=== PATIENT | female | born 1970 | race Caucasian/White ===

== ENCOUNTER 2018-07-05 01:01 | Outpatient (CLI) | payer MEDICAID, SELFPAY ==
--- NOTE | 2018-07-05 11:07 | DI.REPORT_ITS ---
SYMPTOM/DIAGNOSIS: HALLUX VALGUS ACQUIRED LT FOOT, M20.11, HALLUX VALGUS ACQUIRED RT FOOT BUNION RIGHT FOOT: 07/05 LEFT FOOT 07/05 Four views of each foot were obtained. There is bilateral hallux valgus deformity moderate on the right and severe on the left. Minimal degenerative changes are noted of the 1st MTP joints bilaterally. No other significant bony abnormality seen.
== END 2018-07-05 01:02 ==
PROVIDERS: PCP Family Medicine; Visit Provider Podiatrist Foot & Ankle Surgery
DX: M20.11 Hallux valgus (acquired), right foot (principal); M20.12 Hallux valgus (acquired), left foot; M19.071 Primary osteoarthritis, right ankle and foot; M19.072 Primary osteoarthritis, left ankle and foot
CPT/HCPCS: 73630

== ENCOUNTER 2018-07-05 01:02 | Outpatient (CLI) | payer MEDICAID, SELFPAY ==
[2018-07-05 12:24] LABS: HCT 45.5 % (36.0-46.0); HGB 15.7 g/dL (12.0-15.5); Mean Corp. HGB Concentration 34.5 g/dL (32.0-36.0); Mean Corpuscular Hemoglobin 31.2 pg (27.0-33.0); Mean Corpuscular Volume 90.5 fL (80-95); Mean Platelet Volume 9.1 fL (8.0-11.0); Platelet Count 386 x1000/uL (130-400); RBC 5.03 m/cumm (4.00-5.20); RBC Distribution Width 13.7 % (11.7-14.6); White Blood Cell Count 6.43 k/cumm (4.4-10.8)
[2018-07-05 13:11] LABS: Iron 184 ug/dL (50-175)
[2018-07-05 13:34] LABS: ALT 90 U/L (12-78); AST 79 U/L (15-37); Alkaline Phosphatase 175 U/L (46-116); Anion Gap 6.6 mmol/L (3-11); BUN 10 mg/dL (7-18); Bilirubin, Total 0.3 mg/dL (0.2-1.0); CO2 30.4 mmol/L (21.0-32.0); CREATININE 0.85 mg/dL (0.55-1.02); Calcium 9.5 mg/dL (8.5-10.1); Chloride 99 mmol/L (98-107); Cholesterol 251 mg/dL (50-200); Ferritin 86 ng/mL (8-388); Folate > 20.0 ng/mL (8.6-20.0); GGT 106 U/L (5-55); Glucose 105 mg/dL (70-100); HDL Cholesterol 60 mg/dL (40-60); LDL CHOLESTEROL 163 mg/dL (<100); Potassium 4.5 mmol/L (3.5-5.1); Sodium 136 mmol/L (136-145); TSH (W/Ref FT4) 0.84 uIU/mL (0.358-3.74); Triglyceride 145 mg/dL (30-150); Vitamin B12 733 pg/mL (193-986)
[2018-07-05 15:25] LABS: ESR 17 MM/HR (0-20)
[2018-07-06 07:11] LABS: Vitamin D 25 Total 74.1 ng/ml (30-100)
== END 2018-07-05 01:03 ==
PROVIDERS: PCP Family Medicine; Visit Provider Family Medicine
DX: B19.20 Unspecified viral hepatitis C without hepatic coma (principal); E53.8 Deficiency of other specified B group vitamins; E55.9 Vitamin D deficiency, unspecified; E61.1 Iron deficiency; I10 Essential (primary) hypertension; K29.80 Duodenitis without bleeding; R11.0 Nausea; J44.9 Chronic obstructive pulmonary disease, unspecified; G89.4 Chronic pain syndrome; R20.0 Anesthesia of skin
CPT/HCPCS: 36415; 80053; 80061; 82306; 83721; 85027; 85652; 86803; 73630; 82607; 82728; 82746; 82977; 83540; 83735; 84443; 87522

== ENCOUNTER 2019-02-07 13:54 | Outpatient (CLI) | payer MEDICAID, SELFPAY ==
--- NOTE | 2019-02-07 10:15 | DI.RAD_ITS ---
SYMPTOMS/DIAGNOSIS: LT KNEE PAIN, M25.562 LEFT KNEE: The patient is status post ACL repair. The joint spaces are well maintained. No joint effusion is visible. IMPRESSION: Status post ACL repair.
== END 2019-02-07 14:14 ==
PROVIDERS: PCP Family Medicine; Visit Provider Family Medicine
DX: M25.562 Pain in left knee (principal); Z98.890 Other specified postprocedural states
CPT/HCPCS: 73564

== ENCOUNTER 2020-04-30 04:07 | Outpatient (CLI) | payer MEDICAID, SELFPAY ==
[2020-04-30 10:56] LABS: Abs Immature Grans 0.02 k/cumm (0.0-0.09); Absolute Basophil Count 0.04 k/cumm (0.0-0.2); Absolute Eosinophil Count 0.21 k/cumm (0.0-0.7); Absolute Lymphocyte Count 2.02 k/cumm (1.2-3.4); Absolute Monocyte Count 0.62 k/cumm (0.11-0.7); Absolute Neutrophil Count 4.41 k/cumm (1.2-6.7); Basophils % 0.5; Eosinophils % 2.9; HCT 37.7 % (36.0-46.0); Immature Grans % 0.3 %; Lymphocytes % 27.6; Mean Corp. HGB Concentration 34.5 g/dL (32.0-36.0); Mean Corpuscular Hemoglobin 31.5 pg (27.0-33.0); Mean Corpuscular Volume 91.3 fL (80-95); Mean Platelet Volume 9.2 fL (8.0-11.0); Monocytes % 8.5; Neutrophils % 60.2; Platelet Count 367 x1000/uL (130-400); RBC 4.13 m/cumm (4.00-5.20); RBC Distribution Width 12.7 % (11.7-14.6); White Blood Cell Count 7.32 k/cumm (4.4-10.8)
[2020-04-30 11:11] LABS: Hemoglobin A1C 5.4 % (3.8-5.6)
[2020-04-30 11:45] LABS: *AMPHETAMINES SCREEN URINE Negative (Negative); *BARBITURATES SCREEN URINE Negative (Negative); *BENZODIAZEPINES SCREEN URINE Negative (Negative); Cannabinoids THC POSITIVE (Negative); Cocaine Screen,Urine Negative (Negative); METHADONE URINE SCREEN Negative (Negative); OPIATES URINE SCREEN POSITIVE (Negative)
[2020-04-30 11:46] LABS: Tricyclic Antidepressants Negative (Negative)
[2020-04-30 11:50] LABS: ALT 72 U/L (14-59); AST 60 U/L (15-37); Albumin 4.2 g/dL (3.4-5.0); Alkaline Phosphatase 222 U/L (46-116); Anion Gap 8.9 mmol/L (3-11); BUN 16 mg/dL (7-18); Bilirubin, Total 0.4 mg/dL (0.2-1.0); CO2 31.1 mmol/L (21.0-32.0); CREATININE 0.99 mg/dL (0.55-1.02); Calcium 9.2 mg/dL (8.5-10.1); Chloride 94 mmol/L (98-107); Estimated GFR 59.37 (mL/min/1.73m2); Glucose 100 mg/dL (74-106); Potassium 3.7 mmol/L (3.5-5.1); Sodium 134 mmol/L (136-145); Total Protein 8.2 g/dL (6.4-8.2)
[2020-04-30 12:17] LABS: ESR 17 mm/hr (0-20)
[2020-04-30 12:20] LABS: Calculated LDL 171 mg/dL (<100); Cholesterol 251 mg/dL (<200); HDL Cholesterol 57 mg/dL (40-60); Triglyceride 118 mg/dL (<150)
[2020-04-30 13:48] LABS: Folate 8.4 ng/mL (8.6-20.0)
[2020-04-30 16:33] LABS: Rheumatoid Factor 36.5 IU/mL (<12.0)
[2020-05-01 04:49] LABS: Vitamin D 25 Total 83.6 ng/ml (30-100)
[2020-05-01 09:21] LABS: Cyclic Citrullinated Peptide <2.5 U/mL (<5.0)
[2020-05-01 10:10] LABS: Hepatitis C Ab w Rflx HCV PCR Reactive (Negative)
[2020-05-01 16:01] LABS: ANA Interpretation Positive (Negative); ANA Titer Pattern 1:160 Speckled
[2020-05-09 12:11] LABS: HCV RNA Qualitative Detected (Undetected)
== END 2020-04-30 04:27 ==
PROVIDERS: PCP Family Medicine; Visit Provider Family Medicine
DX: B19.20 Unspecified viral hepatitis C without hepatic coma (principal); F32.9 Major depressive disorder, single episode, unspecified; J44.9 Chronic obstructive pulmonary disease, unspecified; R53.83 Other fatigue; G89.29 Other chronic pain; M25.50 Pain in unspecified joint; E11.9 Type 2 diabetes mellitus without complications; E55.9 Vitamin D deficiency, unspecified
CPT/HCPCS: 36415; 80053; 80061; 80307; 82306; 85652; 86200; 86803; 87522; 82746; 83036; 84443; 85025; 86038; 86431

== ENCOUNTER 2021-01-26 00:57 | Outpatient (CLI) | payer MEDICAID, SELFPAY ==
--- NOTE | 2021-01-26 07:30 | DI.MAMMO_ITS ---
EXAM: MAMMO SCREENING CLINICAL HISTORY: screening,Z12.39 TECHNIQUE: Mammograms were interpreted according to the usual protocol including computer analysis w [employer] CAD system, tomosynthesis and C-view imaging. COMPARISON: No prior exams are available for comparison. FINDINGS: The breasts are composed of heterogeneously dense fibroglandular densities, Breast Density category C . No suspicious masses or suspicious microcalcifications are seen. There is scarring in the lateral right breast related to previous biopsy. IMPRESSION: BI-RADS Cat 2 - Benign Findings Yearly screening mammography is recommended. Breast Density Category C, heterogeneously Dense. The mammogram demonstrates the patient's breast tissue is dense. Dense breast tissue is very common a nd is not abnormal but dense breast tissue can make it harder to find cancer on a mammogram. Also, de nse breast tissue may increase breast cancer risk. This information about the result of the mammogram report was provided to the patient to raise their awareness. Use this report when you speak with the patient about their risks for breast cancer, which includes their family history. At that time, you may recommend additional screening tests (Ultrasound or MRI) as they might be useful based on their r isk. A negative radiographic report should not delay biopsy if a dominant or clinically suspicious mass is present. Up to ten percent of cancers are not identified on mammography. A negative report may reinforce clinical impression. Adenosis and dense breasts may obscure an underlying neoplasm. False positive reports average 6 to 10%.
== END 2021-01-26 01:17 ==
PROVIDERS: PCP Family Medicine; Visit Provider Family Medicine
DX: Z12.31 Encounter for screening mammogram for malignant neoplasm of breast (principal)
CPT/HCPCS: 77063; 77067

== ENCOUNTER 2021-01-26 12:03 | Outpatient (REF) | payer MEDICAID, SELFPAY ==
--- NOTE | 2021-01-26 09:50 | PAPFT_PTH ---
PATIENT: Kendal George LOC: [facility] U#:[id number] AGE/SX: 50/F ROOM: RE01/26/[address]: Rachel Pillai MD, DC : 1970 BED: DIS: 01/26/2021 SPEC #: [id number] RECD: 01/26/21 12:53 STATUS: ABEBA REQ #: [id number] RADHA: 01/26/21 09:[address]: Rachel Pillai DEPT: [facility] Cytology RECD BY: Lizzy Choudhary Tissues: 1 - CX/ENDOCX FOR PAP SMEARS Procedures: PAP THIN PREP/UVM Screening HPV DNA PROBE Comments: [id number]
== END 2021-01-26 12:04 | disposition home or self-care (01) ==
LOC: LBN 12:03
PROVIDERS: PCP Family Medicine; Visit Provider Family Medicine
DX: Z12.4 Encounter for screening for malignant neoplasm of cervix (principal); Z11.51 Encounter for screening for human papillomavirus (HPV)
CPT/HCPCS: 88142; 87624

== ENCOUNTER 2021-03-10 03:04 | Outpatient (CLI) | payer MEDICAID, SELFPAY ==
[2021-03-11 13:29] LABS: COVID-19 RT-PCR UVMMC Result Negative (Negative)
== END 2021-03-10 03:05 | disposition home or self-care (01) ==
LOC: LBO 03:04
PROVIDERS: PCP Family Medicine; Visit Provider Family Medicine
DX: Z20.822 Contact with and (suspected) exposure to COVID-19 (principal)
CPT/HCPCS: U0003

== ENCOUNTER 2021-05-07 10:46 | Outpatient (CLI) | payer MEDICAID, SELFPAY ==
--- NOTE | 2021-05-07 09:15 | DI.MRI_ITS ---
Exam(s) MR CERVICAL SPINE WO EXAM: MR CERVICAL SPINE WO CLINICAL HISTORY: cervical myelopathy AND RADICULOPATHY AT C6.M54.12 TECHNIQUE: Multiplanar multisequence MRI of the cervical spine was performed without intravenous con trast. COMPARISON: CR XR CERVICAL SPINE COMP 4-5V from 05/07/2021 FINDINGS: CERVICOMEDULLARY JUNCTION: Intact with no evidence of cerebellar tonsillar ectopia. No obvious abnor mality of the odontoid process. No evidence of Chiari 1 malformation. There is multilevel advanced disc space narrowing at and below C3 and there is reversal of the normal curvature of the cervical sp ine. CERVICAL SPINAL CORD: Significant signal abnormality noted in the posterior active sec of the cervica l cord at C6 level (see below). OSSEOUS:There are no cervical fractures evident. No significant osseous lesions in the cervical vert ebrae. Intraosseous edema is seen within C3, C4, and C5 vertebral bodies. INDIVIDUAL LEVELS: C2-3: No disc herniation nor central canal stenosis. No foraminal stenosis. Significant degenerative changes in the left facet joint. No prominent foraminal stenosis C3-4: Advanced disc space narrowing. Anterior osteophytes. Luschka joint osteophytes and posterior bony ridging. Moderate central spinal canal stenosis. Left-sided facet arthropathy. Bilateral fora anjana stenosis. AP measurement of the spinal canal at this level is 8.5 millimeters. C4-5: Advanced disc space narrowing. Prominent posterior bony ridging with moderate central spinal c anal stenosis. AP measurement of the canal is 6 millimeters. Left-sided facet arthropathy. Lesser right facet arthropathy but there are bilateral foraminal Luschka joint osteophytes. Mild bilateral foraminal stenosis. C5-6: Advanced disc space narrowing.. Posterior bony ridging-bilateral Luschka joint osteophytes. N o distinct disc protrusion. Canal AP measurement is 8.5 millimeters at this level. Mild degenerativ e facet joint changes on the right and moderate on the left. No prominent foraminal stenosis. There is a fluid signal in the posterior aspect of the spinal cord at this level behind the C6 vertebra. This extends for a craniocaudal length of 11 millimeters and exhibits measurement 3 millimeters wide and 2 millimeters AP. C6-7: Moderate-advanced disc space narrowing. Bilateral Luschka joint osteophytes. No distinct disc herniation. Central canal dimensions lower normal. The AP measurement of the canal at this level i s 11.5 millimeters. Mild facet arthropathy. Mild foraminal stenosis. C7-T1: No disc herniation nor central canal stenosis. No facet arthropathy.No foraminal stenosis. IMPRESSION: 1. Severe multilevel chronic degenerative disc disease as described above with severe chronic disc sp radha narrowing at C3-4, C4-5, C5-6, and C6-7 levels and with reversal normal curvature at these levels . There is no distinct disc herniation (there is very little remaining disc material these levels), but there are multilevel dilution joint osteophytes causing foraminal stenosis at multiple levels. I n addition, there is posterior bony ridging and central spinal canal stenosis, as detailed above. In addition, there is abnormal fluid signal seen within the posterior aspect of the spinal cord at C6 l evel, extending from lower C5 level down to upper C 7 level. This signal abnormality in the spinal c ord is more posteriorly than typical for the central canal. Findings are consistent with myelopathy. DATA REPOSITORY:
--- NOTE | 2021-05-07 09:27 | DI.RAD_ITS ---
Exam(s) XR CERVICAL SPINE COMP 4-5V EXAM: XR CERVICAL SPINE COMP 4-5V CLINICAL HISTORY: cervical radiculopathy AT C6,M54.12. TECHNIQUE: 2D digital imaging was performed. FINDINGS: There is no evidence of fracture, listhesis, nor offset of the spinal laminar line. Main finding here is advanced chronic disc space narrowing at C3-4, C4-5, C5-6, and C6-7 levels. The re also small bilateral multilevel Luschka joint osteophytes. Mild facet arthropathy. No osseous le sions. No cervical ribs. IMPRESSION: Chronic advanced multilevel degenerative disc disease. There is straightening of the cervical spine which most probably related to chronic muscle spasm. This was also evident on MRI of April 2013. DATA REPOSITORY: RADIATION DOSE DELIVERED:
== END 2021-05-07 11:06 ==
PROVIDERS: PCP Family Medicine; Visit Provider Family Medicine
DX: M50.023 Cervical disc disorder at C6-C7 level with myelopathy; M50.123 Cervical disc disorder at C6-C7 level with radiculopathy; M48.02 Spinal stenosis, cervical region
CPT/HCPCS: 72050; 72141

== ENCOUNTER 2021-07-30 10:13 | Outpatient (CLI) | payer MEDICAID, SELFPAY ==
--- NOTE | 2021-07-30 10:00 | RT.EKG_ITS ---
APPROVED REPORT Exam: Resting ECG Reason for Exam: Pre-op testing Patient Location: O HR:65 bpm ECG Measurements Heart Rate 65 AXIS VA 122 P 68 QRSd 100 QRS 88 QT 413 T 61 QTc 429 Conclusion Sinus rhythm...normal P axis, V-rate 60- 99 Normal Electrocardiogram
== END 2021-07-30 10:14 | disposition home or self-care (01) ==
LOC: DI.CM 10:14
PROVIDERS: PCP Family Medicine; Visit Provider Family Medicine
DX: Z01.818 Encounter for other preprocedural examination (principal)
CPT/HCPCS: 93010

== ENCOUNTER 2022-02-16 15:26 | Outpatient (REF) | payer MEDICAID, SELFPAY ==
[2022-02-16 14:06] LABS: *AMPHETAMINES SCREEN URINE Negative (Negative); *BARBITURATES SCREEN URINE Negative (Negative); *BENZODIAZEPINES SCREEN URINE Negative (Negative); Cannabinoids THC Positive (Negative); Cocaine Screen,Urine Negative (Negative); METHADONE URINE SCREEN Negative (Negative); OPIATES URINE SCREEN Positive (Negative); Tricyclic Antidepressants Negative (Negative)
== END 2022-02-16 15:27 | disposition home or self-care (01) ==
LOC: LBN 15:26
PROVIDERS: PCP Family Medicine; Visit Provider Family Medicine
DX: G89.4 Chronic pain syndrome (principal)
CPT/HCPCS: 80307

== ENCOUNTER → 2022-04-02 01:12 | Outpatient (CLI) | payer MEDICAID, SELFPAY ==
--- NOTE | 2022-04-02 06:54 | DI.MRI_ITS ---
Exam(s) MR CERVICAL SPINE WO/W EXAM: MR CERVICAL SPINE WO/W CLINICAL HISTORY: worsening pain after surgery,cervical myelopathy,g95.9,m54.12 TECHNIQUE: Multiplanar multisequence MRI of the cervical spine was performed. CONTRAST MATERIAL: IV Contrast: 9 ML of Dotarem contrast administered. COMPARISON: MR MR CERVICAL SPINE WO from 05/07/2021 CR XR CERVICAL SP COMP W FLEX/EXT from 04/02/2022 FINDINGS: Since the prior MRI the patient has undergone posterior spinal surgery from C3 through C7. BONES: Vertebral body heights are maintained. Intervertebral disc spaces are normal. There is straigh tening of the normal cervical lordosis. Bone marrow signal intensity is within normal limits. Moder ate degenerative changes are present throughout the cervical spine. CERVICAL CORD: Craniovertebral junction is unremarkable. The cervical spinal cord is normal in size. There is mild hyperintense signal seen in the spinal cord post in the posterior spinal cord extendin g from C5 through C7. There is no enhancement following contrast administration. No lesion is prese nt. SOFT TISSUES: Unremarkable. ENHANCEMENT: No suspicious enhancement identified. Neural foraminal evaluation is largely obscured due to artifact from the patient's hardware. No sign ificant central spinal canal stenosis is present. IMPRESSION: 1. Interval posterior spinal surgery from C3 through C7. 2. Limited evaluation of the central spinal canal and neural foramen secondary to artifact from the p atient's hardware. 3. Mild hyperintense signal at the posterior aspect of the spinal cord extending from C5 through C7. This does not show enhancement. This is nonspecific but spinal cord injury or myelopathy should be considered. Neoplasm cannot be excluded. DATA REPOSITORY:
--- NOTE | 2022-04-02 12:46 | DI.RAD_ITS ---
Exam(s) XR CERVICAL SP COMP W FLEX/EXT EXAM: XR CERVICAL SP COMP W FLEX/EXT CLINICAL HISTORY: ? movement of spine after surgery,cervical myelopathy. TECHNIQUE: 2D digital imaging was performed. Eight images were obtained. AP, odontoid, lateral, exte nsion, flexion and bilateral oblique images were obtained. COMPARISON: No exams were available for comparison FINDINGS: The odontoid is intact. The lateral masses are well aligned. There is reversal of the normal cervica l lordosis. The patient has had laminectomies from C3 through C7. The vertebral body heights are wel l maintained. There is disc space narrowing and endplate osteophytes from C3-C4 through C6-C7. No ac sault [place] fracture or subluxation is present. The cervical thoracic junction is well maintained. There is limited extension. The prevertebral soft tissues are unremarkable. Lung apices are clear. IMPRESSION: 1. Examination limited by patient motion. 2. Postsurgical changes from C3 through C7. 3. Degenerative changes in the cervical spine. DATA REPOSITORY: RADIATION DOSE DELIVERED:
[2022-04-02 13:29] LABS: HCT 37.4 % (36.0-46.0); HGB 12.9 g/dL (11.2-15.7); MCH 31.1 pg (27.0-33.0); MCHC 34.5 % (32.0-36.0); MCV 90 fL (80-95); MPV 9.1 fL (8.0-11.0); Platelet Count 387 10^3/uL (130-400); RBC 4.15 10^6/uL (3.93-5.22); RDW 12.7 % (11.7-14.6); RDW-SD 42.2 fL; WBC 8.15 10^3/uL (4.4-10.8)
[2022-04-02] MEDS: Gadoterate meglumine 20 ML VIAL IVP (14:04)
[2022-04-02] MEDS: Normal Saline Flush 10 ML SYR IVP (14:05)
[2022-04-02 14:13] LABS: ALT 46 U/L (14-59); AST 42 U/L (15-37); Albumin 3.9 g/dL (3.4-5.0); Alkaline Phosphatase 162 U/L (46-116); Anion Gap 6.1 mmol/L (3-11); BUN 12 mg/dL (7-18); Bilirubin, Total 0.5 mg/dL (0.2-1.0); CO2 29.9 mmol/L (21.0-32.0); CREATININE 0.8 mg/dL (0.55-1.02); Calcium 8.7 mg/dL (8.5-10.1); Calculated LDL 118 mg/dL (<100); Chloride 98 mmol/L (98-107); Cholesterol 196 mg/dL (<200); Ferritin 171 ng/mL (8-252); Glucose 103 mg/dL (74-106); HDL Cholesterol 62 mg/dL (40-60); Potassium 3.7 mmol/L (3.5-5.1); Sodium 134 mmol/L (136-145); TSH (W/Ref FT4) 0.63 uIU/mL (0.36-3.74); Total Protein 7.8 g/dL (6.4-8.2); Triglyceride 84 mg/dL (<150); Vitamin B12 764 pg/mL (193-986)
[2022-04-02 14:14] LABS: Folate > 20.0 ng/mL (8.6-20.0)
[2022-04-02 14:19] LABS: Iron 84 ug/dL (50-170)
[2022-04-05 06:12] LABS: Vitamin D 25 Total 93.7 ng/mL (30-100)
[2022-04-05 12:08] LABS: Hepatitis C Ab w Rflx HCV PCR Reactive (Negative)
[2022-04-07 14:50] LABS: HCV RNA Detection Quantitative 6050000 IU/mL (Undetected); HCV RNA Qualitative Detected (Undetected)
== END ==
PROVIDERS: PCP Family Medicine; Visit Provider Family Medicine
DX: M50.31 Other cervical disc degeneration, high cervical region (principal); M50.323 Other cervical disc degeneration at C6-C7 level; M54.12 Radiculopathy, cervical region; I10 Essential (primary) hypertension; E53.8 Deficiency of other specified B group vitamins; E55.9 Vitamin D deficiency, unspecified; B19.20 Unspecified viral hepatitis C without hepatic coma; D64.9 Anemia, unspecified; G89.4 Chronic pain syndrome; Z98.890 Other specified postprocedural states; G95.89 Other specified diseases of spinal cord
CPT/HCPCS: 80053; 80061; 82306; 85027; 86803; 87522; 72052; 72156; 82607; 82728; 82746; 83540; 84443

== ENCOUNTER → 2022-06-25 00:17 | Outpatient (CLI) | payer MEDICAID, SELFPAY ==
--- NOTE | 2022-06-25 07:15 | DI.MAMMO_ITS ---
Exam(s) MG MAMMO SCREENING 60 MIN DUR EXAM: MG MAMMO SCREENING 60 MIN DUR CLINICAL HISTORY: breast cancer screening, Z12.39 TECHNIQUE: Mammograms were interpreted according to the usual protocol including computer analysis w [employer] CAD system, tomosynthesis and C-view imaging. COMPARISON: 2020 FINDINGS: The breasts are composed of heterogeneously dense fibroglandular densities, Breast Density category C . No suspicious masses or suspicious microcalcifications are seen. No skin thickening or abnormal axillary lymph nodes are seen. There has been no significant change from prior exams. IMPRESSION: BI-RADS Category 1, Negative mammogram. Yearly screening mammography is recommended. Breast Density Category C, heterogeneously Dense. The mammogram demonstrates the patient's breast tissue is dense. Dense breast tissue is very common a nd is not abnormal but dense breast tissue can make it harder to find cancer on a mammogram. Also, de nse breast tissue may increase breast cancer risk. This information about the result of the mammogram report was provided to the patient to raise their awareness. Use this report when you speak with the patient about their risks for breast cancer, which includes their family history. At that time, you may recommend additional screening tests (Ultrasound or MRI) as they might be useful based on their r isk. A negative radiographic report should not delay biopsy if a dominant or clinically suspicious mass is present. Up to ten percent of cancers are not identified on mammography. A negative report may reinforce clinical impression. Adenosis and dense breasts may obscure an underlying neoplasm. False positive reports average 6 to 10%.
== END ==
PROVIDERS: PCP Family Medicine; Visit Provider Family Medicine
DX: Z12.31 Encounter for screening mammogram for malignant neoplasm of breast (principal); R92.8 Other abnormal and inconclusive findings on diagnostic imaging of breast
CPT/HCPCS: 77063; 77067

== ENCOUNTER → 2022-08-19 01:54 | Outpatient (CLI) | payer MEDICAID, SELFPAY ==
--- NOTE | 2022-08-19 10:50 | DI.RAD_ITS ---
Exam(s) XR LUMBAR SPINE COMP W FLEX/EX EXAM: XR LUMBAR SPINE COMP W FLEX/EX CLINICAL HISTORY: LUMBAR PAIN, M54.50;CHECK ALIGNMENT-PERSISTENT PAIN WITH FLEXION/EXTENSION TECHNIQUE: COMPARISON: No exams were available for comparison FINDINGS: Seven views were obtained including flexion and extension lateral views. There is a mild biconvex th oracolumbar scoliosis. There are mild degenerative changes of the SI joints bilaterally. The intervertebral disc spaces appear fairly well maintained. Flexion and extension views are unrema rkable. No evidence spondylolysis or spondylolisthesis. No evidence of compression fracture. There are mild hypertrophic degenerative changes of the vertebral endplates and facet joints throughout the lumbar region. IMPRESSION: Mild scoliosis and degenerative changes as described above. RADIATION DOSE DELIVERED: Total DLP
== END ==
PROVIDERS: PCP Family Medicine; Visit Provider Nurse Practitioner
DX: M41.9 Scoliosis, unspecified (principal); M47.816 Spondylosis without myelopathy or radiculopathy, lumbar region
CPT/HCPCS: 72114

== ENCOUNTER → 2023-08-22 03:03 | Outpatient (CLI) | payer MEDICAID, SELFPAY ==
[2023-06-09 13:34] LABS: ALT 50 U/L (14-59); AST 49 U/L (15-37); Albumin 3.9 g/dL (3.4-5.0); Alkaline Phosphatase 254 U/L (46-116); Anion Gap 6.2 mmol/L (3-11); BUN 14 mg/dL (7-18); Bilirubin, Total 0.4 mg/dL (0.2-1.0); CO2 28.8 mmol/L (21.0-32.0); Calcium 9.2 mg/dL (8.5-10.1); Chloride 95 mmol/L (98-107); Estimated GFR 67.36 (mL/min/1.73m2); Glucose 118 mg/dL (74-106); Potassium 4.3 mmol/L (3.5-5.1); Sodium 130 mmol/L (136-145); TSH (W/Ref FT4) 0.58 uIU/mL (0.36-3.74); Total Protein 8.4 g/dL (6.4-8.2)
[2023-06-09 15:42] LABS: Vitamin D 25 Total 68.8 ng/mL (30-100)
[2023-06-10 07:31] LABS: HCT 40.1 % (36.0-46.0); HGB 13.7 g/dL (11.2-15.7); MCH 31.2 pg (27.0-33.0); MCHC 34.2 % (32.0-36.0); MCV 91 fL (80-95); MPV 9.4 fL (8.0-11.0); Platelet Count 403 10^3/uL (130-400); RBC 4.39 10^6/uL (3.93-5.22); RDW 13.1 % (11.7-14.6); RDW-SD 44.3 fL; WBC 5.28 10^3/uL (4.4-10.8)
[2023-06-13 15:41] LABS: Hepatitis C Ab w Rflx HCV PCR Reactive (Negative)
[2023-06-15 11:20] LABS: HCV RNA Detection Quantitative 9140000 IU/mL (Undetected); HCV RNA Qualitative Detected (Undetected)
--- NOTE | 2023-08-22 08:29 | DI.CT_ITS ---
Exam(s) CT ABDOMEN PELVIS W EXAM: CT ABDOMEN PELVIS W CLINICAL HISTORY: frequent N/V; hernia,epigastric mass, r19.06,k42.9. TECHNIQUE: Imaging Protocol: Axial computed tomography images with coronal and sagittal reformatted images were created and reviewed CONTRAST MATERIAL: Intravenous: Omnipaque 350 Contrast volume:100 ml Oral: yes COMPARISON: CT NECK,CHEST,ABD,PELVIS WITH CO from 08/22/2017 FINDINGS: ABDOMEN: Lung Bases: Normal where visualized. Liver: Normal density. No measurable mass. Gallbladder and biliary tract: No radiodense calculus or dilation. Pancreas: Normal density, no abnormal calcifications or inflammatory process. Spleen: Normal. Kidneys: Normal size, contour and axis. No radiodense stones or obstructive uropathy. No suspicious m asses seen. Adrenal glands: No masses seen. Vasculature: Abdominal aorta non-dilated. Soft tissues: Small fatty hernia to the left of the umbilicus. PELVIS: Bladder: No gross wall thickening. No calculi.No focal mass. Bowel: No obstruction. No bowel wall thickening. Moderate to increased stool throughout colon. Ap pendix normal. Peritoneal cavity: No ascites, collection or mesenteric inflammatory response. Bones: Unremarkable for age. Reproductive organs: Within normal limits. Lymph nodes: Unremarkable. IMPRESSION:: Small fatty hernia to the left of the umbilicus without evidence of incarceration. Moderate to increased quantity of stool. No acute abnormality. Evidence of mass. RADIATION DOSE DELIVERED: Total DLP DATA REPOSITORY: All CT scans at this facility are submitted to the National Radiology Data Registry (NRDR) Dose Index Registry (DIR) with the [employer] (A[employer]). RADIATION OPTIMIZATION: All CT scans at this facility use at least one of these dose optimization te chniques: automated exposure control; mA and/or kV adjustment per patient size (includes targeted exa ms where dose is matched to clinical indication); or iterative reconstruction.
[2023-08-22] MEDS: Omnipaque 350 MG/ML 50 ML BTL PO (09:47)
[2023-08-22 10:14] LABS: CREATININE 0.8 mg/dL (0.55-1.02); Estimated GFR 88.05 (mL/min/1.73m2)
[2023-08-22] MEDS: Normal Saline - Diluent 50 ML VIAL IJ (11:18)
[2023-08-22] MEDS: Omnipaque 350 MG/ML 500 ML BTL-Imaging package 100 ML IJ (11:19)
[2023-08-22] MEDS: Normal Saline Flush 10 ML SYR IVP (11:19)
== END ==
PROVIDERS: PCP Family Medicine; Visit Provider Family Medicine
DX: E55.9 Vitamin D deficiency, unspecified (principal); R19.06 Epigastric swelling, mass or lump; K42.9 Umbilical hernia without obstruction or gangrene; R53.83 Other fatigue
CPT/HCPCS: 36415; 80053; 82306; 85027; 86803; 87522; 74177; 82565; 84443; Q9967

== ENCOUNTER 2023-08-23 12:13 | Outpatient (REF) | payer MEDICAID, SELFPAY ==
[2023-08-23 21:36] LABS: *AMPHETAMINES SCREEN URINE Negative (Negative); *BARBITURATES SCREEN URINE Negative (Negative); *BENZODIAZEPINES SCREEN URINE Negative (Negative); Cannabinoids THC Positive (Negative); Cocaine Screen,Urine Negative (Negative); METHADONE URINE SCREEN Negative (Negative); OPIATES URINE SCREEN Positive (Negative)
[2023-08-23 21:38] LABS: Tricyclic Antidepressants Negative (Negative)
== END 2023-08-23 12:14 | disposition home or self-care (01) ==
LOC: LBN 12:13
PROVIDERS: PCP Family Medicine; Visit Provider Family Medicine
DX: G89.4 Chronic pain syndrome (principal)
CPT/HCPCS: 80307

== ENCOUNTER 2024-04-19 11:42 | Outpatient (REF) | payer MEDICAID, SELFPAY ==
--- NOTE | 2024-04-19 10:30 | PAPFT_PTH ---
PATIENT: Kendal George LOC: [facility]#:[id number] AGE/SX: 53/F ROOM: RE04/19/[address]: Rachel Pillai MD, DC : 1970 BED: DIS: 04/19/2024 SPEC #: [id number] RECD: 04/20/24 17:37 STATUS: ABEBA REQ #: [id number] RADHA: 04/19/24 10:[address]: Rachel Pillai DEPT: [facility] Cytology RECD BY: Lizzy Choudhary Tissues: 1 - CX/ENDOCX FOR PAP SMEARS Procedures: PAP THIN PREP/UVM Screening HPV DNA PROBE Comments: [id number]
== END 2024-04-19 11:43 | disposition home or self-care (01) ==
LOC: LBN 11:42
PROVIDERS: PCP Family Medicine; Visit Provider Family Medicine
DX: Z12.4 Encounter for screening for malignant neoplasm of cervix (principal)
CPT/HCPCS: 88142; 87624

== ENCOUNTER 2024-11-13 08:59 | Outpatient (CLI) | payer MEDICAID, SELFPAY ==
[2024-11-13 12:30] LABS: HCT 39.3 % (36.0-46.0); HGB 13.4 g/dL (11.2-15.7); MCH 30.1 pg (27.0-33.0); MCHC 34.1 % (32.0-36.0); MCV 88 fL (80-95); MPV 9.6 fL (8.0-11.0); Platelet Count 394 10^3/uL (130-400); RBC 4.45 10^6/uL (3.93-5.22); RDW 13.2 % (11.7-14.6); RDW-SD 43.4 fL; WBC 5.21 10^3/uL (4.4-10.8)
[2024-11-13 13:00] LABS: ALT 31 U/L (14-59); AST 36 U/L (15-37); Albumin 3.7 g/dL (3.4-5.0); Alkaline Phosphatase 197 U/L (46-116); Anion Gap 6.5 mmol/L (3-11); BUN 13 mg/dL (7-18); Bilirubin, Total 0.28 mg/dL (0.2-1.0); CO2 30.5 mmol/L (21.0-32.0); CREATININE 0.9 mg/dL (0.55-1.02); Calcium 9.5 mg/dL (8.5-10.1); Chloride 96 mmol/L (98-107); Glucose 110 mg/dL (74-106); Potassium 3.9 mmol/L (3.5-5.1); Sodium 133 mmol/L (136-145); TSH (W/Ref FT4) 0.24 uIU/mL (0.36-3.74); Total Protein 8.2 g/dL (6.4-8.2)
[2024-11-13 13:16] LABS: Hemoglobin A1C 5.7 % (<5.7)
[2024-11-13 13:24] LABS: FREE T4 1.09 ng/dL (0.76-1.46)
== END 2024-11-13 09:00 | disposition home or self-care (01) ==
LOC: LOS 08:59
PROVIDERS: PCP Family Medicine; Referring Provider Family Medicine; Visit Provider Family Medicine
DX: I10 Essential (primary) hypertension (principal); R11.0 Nausea; E11.9 Type 2 diabetes mellitus without complications; E03.9 Hypothyroidism, unspecified
CPT/HCPCS: 36415; 80053; 85027; 83036; 84439; 84443

== ENCOUNTER 2024-11-13 14:55 | Outpatient (REF) | payer MEDICAID, SELFPAY ==
[2024-11-13 14:16] LABS: *AMPHETAMINES SCREEN URINE Negative (Negative); *BARBITURATES SCREEN URINE Negative (Negative); *BENZODIAZEPINES SCREEN URINE Negative (Negative); Cannabinoids THC Positive (Negative); Cocaine Screen,Urine Negative (Negative); METHADONE URINE SCREEN Negative (Negative); OPIATES URINE SCREEN Positive (Negative)
[2024-11-13 14:20] LABS: Tricyclic Antidepressants Negative (Negative)
== END 2024-11-13 14:56 | disposition home or self-care (01) ==
LOC: LBN 14:55
PROVIDERS: PCP Family Medicine; Visit Provider Family Medicine
DX: G89.4 Chronic pain syndrome (principal); Z23 Encounter for immunization; G90.59 Complex regional pain syndrome I of other specified site
CPT/HCPCS: 80307

== ENCOUNTER 2025-05-07 02:12 | Outpatient (CLI) | payer MEDICAID, SELFPAY ==
--- NOTE | 2025-05-07 07:46 | DI.MAMMO_ITS ---
Exam(s) MG MAMMO SCREENING 60 MIN DUR EXAM: MG MAMMO SCREENING 60 MIN DUR CLINICAL HISTORY: breast cancer screening,z12.31 TECHNIQUE: Mammograms were interpreted according to the usual protocol including computer analysis with CAD system, tomosynthesis and C-view imaging. COMPARISON: 2020 and 2021 FINDINGS: The breasts are composed of heterogeneously dense fibroglandular densities, Breast Density category C. No suspicious masses or suspicious microcalcifications are seen. No skin thickening or abnormal axillary lymph nodes are seen. There has been no significant change from prior exams. IMPRESSION: BI-RADS Category 1, Negative mammogram. Yearly screening mammography is recommended. Breast Density: Category C - The breasts are heterogeneously dense, which may obscure small masses. Breast density Category C or D implies that the patient has dense breast tissue. Dense breast tissue can make it harder to find cancer on a mammogram. Dense breast tissue is also associated with an increased risk of breast cancer. This information about the result of the mammogram report was provided to the patient to raise their awareness. Use this report when you speak with the patient about their risks for breast cancer, which includes their family history. At that time, you may recommend additional screening tests (Ultrasound or MRI) as these tests may add significant information. A negative radiographic report should not delay biopsy if a dominant or clinically suspicious mass is present. Up to ten percent of cancers are not identified on mammography. A negative report may reinforce clinical impression. Adenosis and dense breasts may obscure an underlying neoplasm. False positive reports average 6 to 10%.
== END 2025-05-07 02:32 ==
LOC: DI 02:12
PROVIDERS: PCP Family Medicine; Visit Provider Family Medicine
DX: Z12.31 Encounter for screening mammogram for malignant neoplasm of breast (principal); R92.333 Mammographic heterogeneous density, bilateral breasts
CPT/HCPCS: 77063; 77067

== ENCOUNTER 2025-09-11 01:22 | Outpatient (CLI) | payer MEDICAID, SELFPAY ==
--- NOTE | 2025-09-11 08:09 | DI.RAD_ITS ---
Exam(s) XR FOOT LT COMPLETE EXAM: XR FOOT LT COMPLETE CLINICAL HISTORY: FOOT PAIN,rt,m79.671. TECHNIQUE: 2D digital imaging was performed. COMPARISON: CR XR FOOT RT COMPLETE from 09/11/2025 FINDINGS: 3 views No evidence of acute fracture or diastasis of the Lisfranc joint. There is prominent hallux valgus, similar to the opposite side. Mild degenerative changes are noted in the great toe metatarsophalangeal joint. Other MTP joints appear unremarkable as do the other tick lesions in the foot. Bone density normal. No osseous lesions. IMPRESSION: Prominent hallux valgus. DATA REPOSITORY: RADIATION DOSE DELIVERED:
--- NOTE | 2025-09-11 08:10 | DI.RAD_ITS ---
Exam(s) XR FOOT RT COMPLETE EXAM: XR FOOT RT COMPLETE CLINICAL HISTORY: FOOT PAIN,LT, M79.672. TECHNIQUE: 2D digital imaging was performed. COMPARISON: No exams were available for comparison FINDINGS: 3 views No evidence of fracture or diastasis of the Lisfranc joint. There is prominent hallux valgus noted. Moderate degenerative changes in the great toe metatarsophalangeal joint also evident. Other MTP joints appear unremarkable as do the other articulations of the foot. IMPRESSION: Prominent hallux valgus. DATA REPOSITORY: RADIATION DOSE DELIVERED:
== END 2025-09-11 01:42 ==
LOC: DI 01:22
PROVIDERS: PCP Family Medicine; Visit Provider Podiatrist
DX: M79.672 Pain in left foot (principal); M79.671 Pain in right foot; M20.12 Hallux valgus (acquired), left foot
CPT/HCPCS: 73630

== ENCOUNTER 2025-09-11 08:21 | Outpatient (CLI) | payer MEDICAID, SELFPAY ==
[2025-09-11 10:37] LABS: HCT 39.0 % (36.0-46.0); HGB 13.9 g/dL (11.2-15.7); MCH 31.2 pg (27.0-33.0); MCHC 35.6 % (32.0-36.0); MCV 87 fL (80-95); MPV 9.0 fL (8.0-11.0); Platelet Count 374 10^3/uL (130-400); RBC 4.46 10^6/uL (3.93-5.22); RDW 12.7 % (11.7-14.6); RDW-SD 41.0 fL; WBC 7.91 10^3/uL (4.4-10.8)
[2025-09-11 11:17] LABS: ALT 31 U/L (14-59); AST 31 U/L (15-37); Albumin 3.8 g/dL (3.4-5.0); Alkaline Phosphatase 191 U/L (46-116); Anion Gap 11.5 mmol/L (3-11); BUN 13 mg/dL (7-18); Bilirubin, Total 0.5 mg/dL (0.2-1.0); CO2 26.5 mmol/L (21.0-32.0); Calcium 9.1 mg/dL (8.5-10.1); Calculated LDL 166 mg/dL (<100); Chloride 89 mmol/L (98-107); Cholesterol 240 mg/dL (<200); Estimated GFR 86.96 (mL/min/1.73m2); Glucose 116 mg/dL (74-106); HDL Cholesterol 49 mg/dL (>or=50); Potassium 3.7 mmol/L (3.5-5.1); Sodium 127 mmol/L (136-145); TSH (W/Ref FT4) 0.85 uIU/mL (0.36-3.74); Total Protein 8.1 g/dL (6.4-8.2); Triglyceride 127 mg/dL (<150)
[2025-09-11 14:29] LABS: Hemoglobin A1C 5.5 % (<5.7)
[2025-09-11 23:09] LABS: Hepatitis C Ab w Rflx HCV PCR Reactive (Negative)
[2025-09-12 13:55] LABS: HCV RNA Qualitative Detected (Undetected)
== END 2025-09-11 08:22 | disposition home or self-care (01) ==
LOC: LBO 08:22
PROVIDERS: PCP Family Medicine; Visit Provider Family Medicine
DX: E03.9 Hypothyroidism, unspecified (principal); J44.9 Chronic obstructive pulmonary disease, unspecified; I10 Essential (primary) hypertension; Z11.59 Encounter for screening for other viral diseases; R63.5 Abnormal weight gain
CPT/HCPCS: 36415; 80053; 80061; 85027; 86803; 87522; 83036; 84443